=== PATIENT | female | born 1960 | race Caucasian/White ===

== ENCOUNTER 2017-03-22 21:41 | Outpatient (CLI) ==
[2013-05-01 19:58] VITALS: TEMP 98
[2016-04-18 20:23] VITALS: BMI 18.6
== END 2017-03-22 21:42 ==
LOC: AMBL 21:41
PROVIDERS: ATTEND Family Medicine
DX: R11.2 Nausea with vomiting, unspecified (principal)

== ENCOUNTER 2017-04-20 21:15 | Outpatient (CLI) ==
[2013-05-01 19:58] VITALS: TEMP 98
[2016-04-18 20:23] VITALS: BMI 18.6
== END 2017-04-20 21:16 | disposition home or self-care (01) ==
LOC: AMBL 21:15
PROVIDERS: ATTEND Emergency Medicine
DX: E87.6 Hypokalemia (principal); R19.7 Diarrhea, unspecified; R11.10 Vomiting, unspecified; R10.9 Unspecified abdominal pain; Z87.19 Personal history of other diseases of the digestive system

== ENCOUNTER 2017-04-24 19:44 | Outpatient (CLI) ==
[2013-05-01 19:58] VITALS: TEMP 98
[2016-04-18 20:23] VITALS: BMI 18.6
== END 2017-04-24 19:52 ==
LOC: AMBL 19:44
PROVIDERS: ATTEND Internal Medicine Geriatric Medicine
DX: R11.2 Nausea with vomiting, unspecified (principal); R19.7 Diarrhea, unspecified; E87.6 Hypokalemia

== ENCOUNTER 2017-04-26 22:20 | Outpatient (CLI) ==
[2013-05-01 19:58] VITALS: TEMP 98
[2016-04-18 20:23] VITALS: BMI 18.6
== END 2017-04-26 22:21 ==
LOC: AMBL 22:20
PROVIDERS: ATTEND Internal Medicine Geriatric Medicine
DX: M79.89 Other specified soft tissue disorders (principal); M79.605 Pain in left leg; M79.604 Pain in right leg

== ENCOUNTER 2017-06-19 21:27 | Outpatient (CLI) ==
[2013-05-01 19:58] VITALS: TEMP 98
[2016-04-18 20:23] VITALS: BMI 18.6
== END 2017-06-19 21:28 ==
LOC: AMBL 21:27
PROVIDERS: ATTEND Family Medicine
DX: R53.1 Weakness (principal); R19.7 Diarrhea, unspecified; R11.0 Nausea; R68.89 Other general symptoms and signs

== ENCOUNTER 2017-08-13 20:55 | Outpatient (CLI) ==
[2013-05-01 19:58] VITALS: TEMP 98
[2016-04-18 20:23] VITALS: BMI 18.6
== END 2017-08-13 20:56 ==
LOC: AMBL 20:55
PROVIDERS: ATTEND Family Medicine
DX: E87.6 Hypokalemia (principal); R10.9 Unspecified abdominal pain; R11.10 Vomiting, unspecified; R19.7 Diarrhea, unspecified

== ENCOUNTER 2017-08-26 21:56 | Outpatient (CLI) ==
[2013-05-01 19:58] VITALS: TEMP 98
[2016-04-18 20:23] VITALS: BMI 18.6
== END 2017-08-26 21:57 | disposition short-term general hospital (02) ==
LOC: AMBL 21:56
PROVIDERS: ATTEND Family Medicine
DX: R11.10 Vomiting, unspecified (principal); R19.7 Diarrhea, unspecified; E87.6 Hypokalemia

== ENCOUNTER 2017-10-03 09:40 | Outpatient (CLI) ==
[2016-04-18 20:23] VITALS: BMI 18.6
[2017-10-03] MEDS ORDERED: POTASSIUM CHLORIDE PREMIX RUN 40 MEQ in PREMIX 100 ML WATER 2 BAG IV STA (09:47)
[2017-10-03] MEDS ORDERED: ADDITIVE ONLY IV ONE ×2 (10:00→10:30)
[2017-10-03] MEDS ORDERED: POTASSIUM CHLORIDE IV ONE ×2 (10:00→10:30)
[2017-10-03] MEDS ORDERED: SODIUM CHLORIDE IV ONE ×2 (10:00→10:30)
[2017-10-03 10:33] VITALS: BP 102/74; TEMP 97.4
== END 2017-10-03 09:41 | disposition home or self-care (01) ==
LOC: OUTPT 09:40
PROVIDERS: ATTEND Family Medicine
DX: E87.6 Hypokalemia (principal); E86.1 Hypovolemia
CPT/HCPCS: 96365; 96366

== ENCOUNTER 2017-10-04 10:56 | Outpatient (CLI) ==
[2013-05-01 19:58] VITALS: TEMP 98
[2016-04-18 20:23] VITALS: BMI 18.6
[2017-10-04 11:39] LABS: ANION GAP 11.7; BUN/CREATININE RATIO 14.28; CALCIUM 8.3 mg/dL (8.2-10.2); CREATININE 0.63 mg/dL (0.60-1.30)
[2017-10-04 11:47] LABS: POTASSIUM 2.7 mmol/L (3.5-5.10)
== END 2017-10-04 10:57 | disposition home or self-care (01) ==
LOC: LAB 10:56
PROVIDERS: ATTEND Family Medicine
DX: K52.9 Noninfective gastroenteritis and colitis, unspecified (principal); E87.6 Hypokalemia
CPT/HCPCS: 36415; 80048

== ENCOUNTER 2017-10-05 08:12 | Outpatient (CLI) ==
[2016-04-18 20:23] VITALS: BMI 18.6
[2017-10-05 09:04] LABS: ANION GAP 9.3; BUN/CREATININE RATIO 11.86; CALCIUM 8.4 mg/dL (8.2-10.2); CREATININE 0.59 mg/dL (0.60-1.30)
[2017-10-05 09:10] LABS: POTASSIUM 2.3 mmol/L (3.5-5.10)
[2017-10-05 09:55] VITALS: BP 101/67; TEMP 97.9
[2017-10-05] MEDS ORDERED: SODIUM CHLORIDE IV ONE (10:30)
[2017-10-05] MEDS ORDERED: POTASSIUM CHLORIDE IV ONE (10:30)
[2017-10-05] MEDS ORDERED: ADDITIVE ONLY IV ONE (10:30)
[2017-10-05 15:24] LABS: ANION GAP 11.7; BUN/CREATININE RATIO 9.52; CALCIUM 8.3 mg/dL (8.2-10.2); CREATININE 0.63 mg/dL (0.60-1.30)
[2017-10-05 15:38] LABS: POTASSIUM 2.7 mmol/L (3.5-5.10)
== END 2017-10-05 08:13 | disposition home or self-care (01) ==
LOC: LAB 08:12
PROVIDERS: ATTEND Family Medicine
DX: E87.6 Hypokalemia (principal); E86.1 Hypovolemia; R11.10 Vomiting, unspecified; K52.9 Noninfective gastroenteritis and colitis, unspecified
CPT/HCPCS: 36415; 80048; 96365; 96366

== ENCOUNTER 2017-10-08 10:54 | Outpatient (CLI) ==
[2016-04-18 20:23] VITALS: BMI 18.6
[2017-10-08 11:36] LABS: BUN/CREATININE RATIO 15.62; CALCIUM 8.6 mg/dL (8.2-10.2); CREATININE 0.64 mg/dL (0.60-1.30)
[2017-10-08 12:02] VITALS: BP 94/64; TEMP 98.4
[2017-10-08] MEDS ORDERED: POTASSIUM CHLORIDE IV ONE (13:15)
[2017-10-08] MEDS ORDERED: ADDITIVE ONLY IV ONE (13:15)
[2017-10-08] MEDS ORDERED: SODIUM CHLORIDE IV ONE (13:15)
[2017-10-08 18:53] LABS: ANION GAP 9.6; BUN/CREATININE RATIO 12.5; CALCIUM 7.9 mg/dL (8.2-10.2); CREATININE 0.64 mg/dL (0.60-1.30); POTASSIUM 3.6 mmol/L (3.5-5.10)
== END 2017-10-08 10:55 | disposition home or self-care (01) ==
LOC: LAB 10:54
PROVIDERS: ATTEND Family Medicine
DX: E87.6 Hypokalemia (principal); E86.1 Hypovolemia
CPT/HCPCS: 36415; 80048; 96365; 96366

== ENCOUNTER 2017-10-10 08:47 | Outpatient (CLI) ==
[2013-05-01 19:58] VITALS: TEMP 98
[2016-04-18 20:23] VITALS: BMI 18.6
[2017-10-10] MEDS ORDERED: POTASSIUM CHLORIDE PREMIX RUN 20 MEQ in PREMIX 100 ML WATER 1 BAG IV STA (09:39)
[2017-10-10 09:41] LABS: ANION GAP 9.3; BUN/CREATININE RATIO 16.17; CALCIUM 8.7 mg/dL (8.2-10.2); CREATININE 0.68 mg/dL (0.60-1.30)
[2017-10-10 09:54] LABS: POTASSIUM 2.3 mmol/L (3.5-5.10)
[2017-10-10] MEDS ORDERED: SODIUM CHLORIDE IV ONE (10:30)
[2017-10-10] MEDS ORDERED: POTASSIUM CHLORIDE IV ONE (10:30)
[2017-10-10] MEDS ORDERED: ADDITIVE ONLY IV ONE (10:30)
== END 2017-10-10 08:48 | disposition home or self-care (01) ==
LOC: LAB 08:47 → OPMED 08:48
PROVIDERS: ATTEND Family Medicine
DX: E87.6 Hypokalemia (principal); E86.1 Hypovolemia; K52.9 Noninfective gastroenteritis and colitis, unspecified
CPT/HCPCS: 36415; 80048; 96365; 96366

== ENCOUNTER 2017-10-12 09:36 | Outpatient (CLI) ==
[2013-05-01 19:58] VITALS: TEMP 98
[2016-04-18 20:23] VITALS: BMI 18.6
[2017-10-12 10:54] LABS: ANION GAP 11.8; BUN/CREATININE RATIO 12.12; CALCIUM 8.5 mg/dL (8.2-10.2); CREATININE 0.66 mg/dL (0.60-1.30)
[2017-10-12 10:56] LABS: POTASSIUM 1.8 mmol/L (3.5-5.10)
[2017-10-12] MEDS: ADDITIVE ONLY IV SCH ×2 (11:33→16:00)
[2017-10-12] MEDS: POTASSIUM CHLORIDE IV SCH ×2 (11:33→16:00)
[2017-10-12] MEDS: SODIUM CHLORIDE IV SCH ×2 (11:33→16:00)
[2017-10-12] MEDS ORDERED: HEPARIN 500 UNIT/5 ML (PORT ACCESS TRAY ONLY) IVF ONE (14:45)
[2017-10-12] MEDS ORDERED: SALINE FLUSH (PORT ACCESS TRAY USE ONLY) IVF ONE (14:46)
== END 2017-10-12 09:37 | disposition home or self-care (01) ==
LOC: OPMED 09:36
PROVIDERS: ATTEND Family Medicine
DX: E87.6 Hypokalemia (principal); E86.1 Hypovolemia
CPT/HCPCS: 36415; 80048; 84132; 96365; 96366

== ENCOUNTER 2017-10-15 13:02 | Outpatient (CLI) ==
[2016-04-18 20:23] VITALS: BMI 18.6
[2017-10-15 14:01] LABS: ANION GAP 13.4; BUN/CREATININE RATIO 8.64; CALCIUM 8.5 mg/dL (8.2-10.2); CREATININE 0.81 mg/dL (0.60-1.30)
[2017-10-15 14:22] LABS: POTASSIUM 2.4 mmol/L (3.5-5.10)
[2017-10-15 14:52] VITALS: BP 120/70
[2017-10-15] MEDS ORDERED: SODIUM CHLORIDE IV ONE (14:52)
[2017-10-15] MEDS ORDERED: ADDITIVE ONLY IV ONE (14:52)
[2017-10-15] MEDS ORDERED: POTASSIUM CHLORIDE IV ONE (14:52)
[2017-10-15 20:48] LABS: ANION GAP 10.7; BUN/CREATININE RATIO 9.83; CALCIUM 7.8 mg/dL (8.2-10.2); CREATININE 0.61 mg/dL (0.60-1.30)
[2017-10-15 20:58] LABS: POTASSIUM 2.7 mmol/L (3.5-5.10)
== END 2017-10-15 20:42 | disposition home or self-care (01) ==
LOC: LAB 13:02
PROVIDERS: ATTEND Family Medicine
DX: E87.6 Hypokalemia (principal); E86.1 Hypovolemia
CPT/HCPCS: 36415; 80048

== ENCOUNTER 2017-10-17 08:26 | Outpatient (CLI) ==
[2016-04-18 20:23] VITALS: BMI 18.6
[2017-10-17 09:12] LABS: ANION GAP 10.7; BUN/CREATININE RATIO 11.11; CALCIUM 8.1 mg/dL (8.2-10.2); CREATININE 0.99 mg/dL (0.60-1.30)
[2017-10-17 09:19] LABS: POTASSIUM 2.7 mmol/L (3.5-5.10)
[2017-10-17 09:39] VITALS: BP 90/59; TEMP 98.3
[2017-10-17] MEDS ORDERED: SODIUM CHLORIDE IV ONE (10:00)
[2017-10-17] MEDS ORDERED: ADDITIVE ONLY IV ONE (10:00)
[2017-10-17] MEDS ORDERED: POTASSIUM CHLORIDE IV ONE (10:00)
[2017-10-17 14:06] LABS: ANION GAP 8.6; BUN/CREATININE RATIO 13.88; CALCIUM 7.6 mg/dL (8.2-10.2); CREATININE 0.72 mg/dL (0.60-1.30); POTASSIUM 3.6 mmol/L (3.5-5.10)
== END 2017-10-17 08:27 | disposition home or self-care (01) ==
LOC: LAB 08:26 → OPMED 08:27
PROVIDERS: ATTEND Family Medicine
DX: E87.6 Hypokalemia (principal); E86.1 Hypovolemia
CPT/HCPCS: 36415; 80048; 96365; 96366

== ENCOUNTER 2017-10-19 08:44 | Outpatient (CLI) ==
[2016-04-18 20:23] VITALS: BMI 18.6
[2017-10-19 10:13] LABS: ANION GAP 9.9; CREATININE 0.6 mg/dL (0.60-1.30); POTASSIUM 2.9 mmol/L (3.5-5.10)
[2017-10-19 10:57] VITALS: BP 96/65; TEMP 98
[2017-10-19] MEDS ORDERED: POTASSIUM CHLORIDE IV STA (10:59)
[2017-10-19] MEDS ORDERED: SODIUM CHLORIDE IV STA (10:59)
[2017-10-19] MEDS ORDERED: ADDITIVE ONLY IV STA (10:59)
[2017-10-19] MEDS: SODIUM CHLORIDE IV ONE (12:15)
[2017-10-19] MEDS: POTASSIUM CHLORIDE IV ONE (12:15)
[2017-10-19] MEDS: ADDITIVE ONLY IV ONE (12:15)
[2017-10-19 16:56] LABS: ANION GAP 10.3; BUN/CREATININE RATIO 13.43; CALCIUM 8.5 mg/dL (8.2-10.2); CREATININE 0.67 mg/dL (0.60-1.30); POTASSIUM 3.3 mmol/L (3.5-5.10)
== END 2017-10-19 08:45 | disposition home or self-care (01) ==
LOC: LAB 08:44
PROVIDERS: ATTEND Family Medicine
DX: E87.6 Hypokalemia (principal); E86.1 Hypovolemia
CPT/HCPCS: 36415; 80048; 96365; 96366

== ENCOUNTER 2017-10-22 08:12 | Outpatient (CLI) ==
[2013-05-01 19:58] VITALS: TEMP 98
[2016-04-18 20:23] VITALS: BMI 18.6
[2017-10-22 09:35] LABS: BUN/CREATININE RATIO 12.12; CALCIUM 8.4 mg/dL (8.2-10.2); CREATININE 0.66 mg/dL (0.60-1.30)
== END 2017-10-22 08:13 | disposition home or self-care (01) ==
LOC: LAB 08:12
PROVIDERS: ATTEND Family Medicine
DX: E87.6 Hypokalemia (principal); E86.1 Hypovolemia
CPT/HCPCS: 36415; 80048

== ENCOUNTER 2017-10-24 08:33 | Outpatient (CLI) ==
[2016-04-18 20:23] VITALS: BMI 18.6
[2017-10-24 09:35] LABS: ANION GAP 11.6; BUN/CREATININE RATIO 13.51; CALCIUM 9.2 mg/dL (8.2-10.2); CREATININE 0.74 mg/dL (0.60-1.30)
[2017-10-24 09:40] LABS: POTASSIUM 2.6 mmol/L (3.5-5.10)
[2017-10-24 10:02] VITALS: BP 92/63; TEMP 98.4
[2017-10-24] MEDS ORDERED: SODIUM CHLORIDE IV ONE (10:15)
[2017-10-24] MEDS ORDERED: ADDITIVE ONLY IV ONE (10:15)
[2017-10-24] MEDS ORDERED: POTASSIUM CHLORIDE IV ONE (10:15)
[2017-10-24 15:08] LABS: BUN/CREATININE RATIO 11.26; CALCIUM 8.4 mg/dL (8.2-10.2); CREATININE 0.71 mg/dL (0.60-1.30)
== END 2017-10-24 08:34 | disposition home or self-care (01) ==
LOC: LAB 08:33 → OPMED 08:34
PROVIDERS: ATTEND Family Medicine
DX: E87.6 Hypokalemia (principal); E86.1 Hypovolemia
CPT/HCPCS: 36415; 80048; 96365; 96366

== ENCOUNTER 2017-10-29 08:15 | Outpatient (CLI) ==
[2016-04-18 20:23] VITALS: BMI 18.6
[2017-10-29 08:49] LABS: ANION GAP 11.3; BUN/CREATININE RATIO 13.88; CALCIUM 8.6 mg/dL (8.2-10.2); CREATININE 0.72 mg/dL (0.60-1.30)
[2017-10-29 08:57] LABS: POTASSIUM 2.3 mmol/L (3.5-5.10)
[2017-10-29 09:10] VITALS: BP 128/75; TEMP 99.2
[2017-10-29] MEDS ORDERED: SODIUM CHLORIDE IV ONE (09:41)
[2017-10-29] MEDS ORDERED: POTASSIUM CHLORIDE IV ONE (09:41)
[2017-10-29] MEDS ORDERED: ADDITIVE ONLY IV ONE (09:41)
[2017-10-29] MEDS ORDERED: HEPARIN 500 UNIT/5 ML (PORT ACCESS TRAY ONLY) IVF ONE (13:43)
[2017-10-29 14:40] LABS: ANION GAP 12.1; BUN/CREATININE RATIO 14.28; CALCIUM 7.8 mg/dL (8.2-10.2); CREATININE 0.63 mg/dL (0.60-1.30); POTASSIUM 3.1 mmol/L (3.5-5.10)
[2017-10-29] MEDS ORDERED: SALINE FLUSH (PORT ACCESS TRAY USE ONLY) IVF ONE (14:44)
== END 2017-10-29 14:34 | disposition home health service (06) ==
LOC: LAB 08:15 → OPMED 14:34
PROVIDERS: ATTEND Family Medicine
DX: E87.6 Hypokalemia (principal); E86.1 Hypovolemia
CPT/HCPCS: 36415; 80048; 96365; 96366

== ENCOUNTER 2017-10-31 08:22 | Outpatient (CLI) ==
[2013-05-01 19:58] VITALS: TEMP 98
[2016-04-18 20:23] VITALS: BMI 18.6
[2017-10-31 09:00] LABS: ANION GAP 15.2; BUN/CREATININE RATIO 17.18; CALCIUM 8.5 mg/dL (8.2-10.2); CREATININE 0.64 mg/dL (0.60-1.30); POTASSIUM 3.2 mmol/L (3.5-5.10)
== END 2017-10-31 08:23 | disposition home or self-care (01) ==
LOC: LAB 08:22
PROVIDERS: ATTEND Family Medicine
DX: E87.6 Hypokalemia (principal); E86.1 Hypovolemia
CPT/HCPCS: 36415; 80048

== ENCOUNTER 2017-11-05 08:08 | Outpatient (CLI) ==
[2013-05-01 19:58] VITALS: TEMP 98
[2016-04-18 20:23] VITALS: BMI 18.6
[2017-11-05 09:07] LABS: BUN/CREATININE RATIO 13.84; CALCIUM 8.5 mg/dL (8.2-10.2); CREATININE 0.65 mg/dL (0.60-1.30)
== END 2017-11-05 08:09 | disposition home or self-care (01) ==
LOC: LAB 08:08
PROVIDERS: ATTEND Family Medicine
DX: E87.6 Hypokalemia (principal); E86.1 Hypovolemia
CPT/HCPCS: 36415; 80048

== ENCOUNTER 2017-11-18 20:30 | Outpatient (CLI) ==
[2013-05-01 19:58] VITALS: TEMP 98
[2016-04-18 20:23] VITALS: BMI 18.6
== END 2017-11-18 20:31 | disposition short-term general hospital (02) ==
LOC: AMBL 20:30
PROVIDERS: ATTEND Family Medicine
DX: R11.2 Nausea with vomiting, unspecified (principal); R19.7 Diarrhea, unspecified

== ENCOUNTER 2017-12-11 21:00 | Outpatient (CLI) ==
[2013-05-01 19:58] VITALS: TEMP 98
[2016-04-18 20:23] VITALS: BMI 18.6
== END 2017-12-11 21:01 | disposition short-term general hospital (02) ==
LOC: AMBL 21:00
PROVIDERS: ATTEND Internal Medicine Geriatric Medicine
DX: R11.10 Vomiting, unspecified (principal); R19.7 Diarrhea, unspecified; E87.6 Hypokalemia

== ENCOUNTER 2017-12-22 20:40 | Outpatient (CLI) ==
[2013-05-01 19:58] VITALS: TEMP 98
[2016-04-18 20:23] VITALS: BMI 18.6
== END 2017-12-22 20:41 | disposition short-term general hospital (02) ==
LOC: AMBL 20:40
PROVIDERS: ATTEND Emergency Medicine
DX: E87.6 Hypokalemia (principal)

== ENCOUNTER 2018-01-13 01:15 | Outpatient (CLI) ==
[2013-05-01 19:58] VITALS: TEMP 98
[2016-04-18 20:23] VITALS: BMI 18.6
== END 2018-01-13 01:16 | disposition short-term general hospital (02) ==
LOC: AMBL 01:15
PROVIDERS: ATTEND Internal Medicine Geriatric Medicine
DX: R11.2 Nausea with vomiting, unspecified (principal); R19.7 Diarrhea, unspecified; R52 Pain, unspecified; K51.90 Ulcerative colitis, unspecified, without complications

== ENCOUNTER 2018-04-14 19:41 | Outpatient (CLI) ==
[2013-05-01 19:58] VITALS: TEMP 98
[2016-04-18 20:23] VITALS: BMI 18.6
== END 2018-04-14 19:55 | disposition short-term general hospital (02) ==
LOC: AMBL 19:41
PROVIDERS: ATTEND Internal Medicine Geriatric Medicine
DX: R11.2 Nausea with vomiting, unspecified (principal); R19.7 Diarrhea, unspecified; M54.5 Low back pain; R51 Headache

== ENCOUNTER 2018-04-18 21:42 | Outpatient (CLI) ==
[2013-05-01 19:58] VITALS: TEMP 98
[2016-04-18 20:23] VITALS: BMI 18.6
== END 2018-04-18 21:56 | disposition short-term general hospital (02) ==
LOC: AMBL 21:42
PROVIDERS: ATTEND Family Medicine
DX: R11.2 Nausea with vomiting, unspecified (principal); R19.7 Diarrhea, unspecified; K50.90 Crohn's disease, unspecified, without complications

== ENCOUNTER 2018-04-21 15:16 | Outpatient (CLI) ==
[2013-05-01 19:58] VITALS: TEMP 98
[2016-04-18 20:23] VITALS: BMI 18.6
== END 2018-04-21 15:29 | disposition short-term general hospital (02) ==
LOC: AMBL 15:16
PROVIDERS: ATTEND Emergency Medicine
DX: M54.9 Dorsalgia, unspecified (principal); X50.1XXA Overexertion from prolonged static or awkward postures, initial encounter

== ENCOUNTER 2018-05-13 19:57 | Outpatient (CLI) ==
[2013-05-01 19:58] VITALS: TEMP 98
[2016-04-18 20:23] VITALS: BMI 18.6
== END 2018-05-13 20:10 | disposition short-term general hospital (02) ==
LOC: AMBL 19:57
PROVIDERS: ATTEND Internal Medicine Geriatric Medicine
DX: R11.2 Nausea with vomiting, unspecified (principal); R19.7 Diarrhea, unspecified; R53.1 Weakness; M54.2 Cervicalgia; W19.XXXA Unspecified fall, initial encounter

== ENCOUNTER 2019-03-05 14:25 | Emergency (ER) ==
[2019-03-05 14:28] VITALS: BMI 20.7
--- NOTE | 2019-03-05 15:51 | DI ---
EXAM: CHEST FRONTAL AND LATERAL VIEWS HISTORY: Heart prominence, panic attacks. COMPARISON: 02/13/2018 FINDINGS: Heart size appears to remain within normal limits. Moderate atherosclerotic disease. Rig ht port catheter stable ending over the upper right atrium. There is diffuse interstitial accentuati on greater in the central lung zones which is new since the previous study. There is probable trace pleural effusions. No lobar consolidation or pneumothorax. IMPRESSION: 1. Interstitial accentuation which is new since previous exam suggesting either interstitial pneumon itis or pulmonary edema. Correlate clinically.
--- NOTE | 2019-03-05 16:13 | CT ---
EXAM: CT abdomen pelvis without contrast HISTORY: History of Crohn disease, abdominal pain COMPARISON: 02/18/2018 TECHNIQUE: CT abdomen pelvis performed without intravenous contrast. Coronal and sagittal reformatt ed images obtained. FINDINGS: Interlobular septal thickening at the lung bases with possible wall thickening. There are multiple small nodules at the lung bases appear new from prior examination. No free air. No acute abnormalities of the bones. Minimal chronic loss of height L4. Multilevel Schmorl's node formation . Associated minimal chronic loss of height. Minimal chronic loss of height L4. Heart top normal i n size. Right chest port terminates in the right atrium, unchanged. Innumerable liver cysts and ad ditional sub centimeter hypodensities in the liver that are too small to characterize. Liver is enla rged. Patient status post cholecystectomy. Prominence of the common bile duct, may be postsurgical. Pancreas unremarkable. Spleen unremarkable. Adrenals unremarkable. No hydronephrosis or nephroli thiasis. Increased density in the bladder. Aorta normal in caliber. Moderate atherosclerosis. Sto mach unremarkable. No dilated loops small bowel. Appendix not visualized. Moderate fecal retention in the colon. No inflammatory stranding identified in the abdomen pelvis. No lymphadenopathy or as cites identified. IMPRESSION: 1. Findings suggesting pulmonary interstitial edema at the lung bases. There could be a component o f interstitial pneumonitis. Additionally, there are multiple small pulmonary nodules appear new from prior examination. Correlation with CT chest. 2. No acute inflammatory process identified in the abdomen or pelvis. 3. Hepatomegaly. Innumerable hepatic cysts and additional sub centimeter hypodensities too small to characterize. 4. Status post cholecystectomy. Prominence of the common bile duct may be postsurgical. Recommend correlation with liver function tests and additional evaluation as indicated. 5. Increased attenuation in the bladder to recent contrast administration. Recommend correlation fo r any evidence for hematuria 6. Moderate fecal retention in the colon. 7. Atherosclerosis. 8. Right chest port terminating in the region of the right atrium, unchanged.
--- NOTE | 2019-03-05 16:35 | ED.PDOC ---
General ED Provider: Dr. MYLENE MCKINNON Chief Complaint: Psychiatric Complaint Stated Complaint: Panic attacks. 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 Also Stressed over not having her meds due to being inbetween providers. Has apt with Dr Malin next week. State out of Xarelto but later found out Prescription given by [facility] but did not get filled as suspected as her brother did not take it to pharmacy[facility] Flare of crohns. HX blood clot on heart(pulm embolus). States dx in October 2018. Was seen in ER a [facility] last week for abdominal pain Time Seen by Physician: 14:45 Mode of Arrival: Walk-In Information Source: Patient Exam Limitations: No limitations Primary Care Provider: DONAL MALIN Nursing and Triage Documentation Reviewed and Agree: Yes Does patient meet sepsis criteria?: No System Inflammatory Response Syndrome: Not Applicable Sepsis Protocol: For patient's 13 years and over: Temp is 96.8 and below OR 101 and greater Pulse >90 BPM Resp >20/minute Acutely Altered Mental Status Are patient's symptoms suggestive of a new infection, such as: -Pneumonia -Skin, Soft Tissue -Endocarditis -UTI -Bone, Joint Infection -Implantable Device -Acute Abdominal Infection -Wound Infection -Meningitis -Blood Stream Catheter Infection -Unknown Psychological Complaint Exam - Psychiatric Complaint/Exam Patient Complains Of: Present: Other (anxiety-=out of xanax for several weeks) Symptoms Are: Still present Timing: Intermittent Episodes Lasting: Days Initial Severity: Moderate Current Severity: Moderate Character: Present: Fearful, Anxious, Frustrated Aggravating: Reports: Recent stress, Medication noncompliance Associated Signs And Symptoms: Reports: Sleep disturbance. Denies: Hostile, Confused, Hallucinating, Paranoid behavior, Appetite change Related History: Denies: Suicidal thoughts, Suicidal plan, Suicidal gestures, Homicidal thoughts, Homicidal plan, Homicidal gestures Completed Suicide Risk Factors: None Patient In Custody Of Police: No Social Withdrawal Present: No Social Isolation Present: No Prior Suicide Attempt: No Injury From Prior Suicide Attempt: No Related Surgical History: Reports: None Patient Uncooperative For Exam: No Mood: Present: Anxious Appearance: Present: Clean Thought Process: Present: Logical Insight: Present: Poor Memory: Intact Judgement: Impaired Danger To Others: No Differential Diagnoses: Anxiety Review of Systems - Review Of Systems Constitutional: Reports: No symptoms Eyes: Reports: No symptoms Ears, Nose, Mouth, Throat: Reports: No symptoms Respiratory: Reports: No symptoms Cardiac: Reports: No symptoms GI: Reports: Abdominal pain : Reports: No symptoms Musculoskeletal: Reports: No symptoms Skin: Reports: No symptoms Neurological: Reports: No symptoms Endocrine: Reports: No symptoms Hematologic/Lymphatic: Reports: No symptoms All Other Systems: Reviewed and Negative Past Medical History - Past Medical History Previously Healthy: No Endocrine: Reports: None Cardiovascular: Reports: None Respiratory: Reports: Asthma Hematological: Reports: Anemia Gastrointestinal: Reports: GERD, Crohn's, Other (Ulcerative colitis. ) Genitourinary: Reports: Other (hypokalemia) Neuro/Psych: Reports: Migraine Musculoskeletal: Reports: Arthritis Cancer: Reports: None Last Menstrual Period: n/a - Surgical History General Surgical History: Reports: Hysterectomy, Cholecystectomy - Family History Family History: Reports: Unknown - Social History Smoking Status: Current some day smoker, Light tobacco smoker Hx Substance Use: No Alcohol Screening: None Physical Exam - Physical Exam Appearance: Ill-appearing, Thin Ill-appearing: Mild Pain Distress: Mild Eyes: ADONIS, EOMI, Conjunctiva clear ENT: Ears normal, Nose normal, Oropharynx normal Neck: Supple Respiratory: Airway patent, Breath sounds clear, Breath sounds equal, Respirations nonlabored Cardiovascular: RRR, Pulses normal, No rub, No murmur GI/: Soft, No masses, Bowel sounds normal, No Organomegaly, Tender Musculoskeletal: Normal strength Skin: Warm, Dry, Normal color Neurological: Sensation intact, Motor intact, Reflexes intact, Cranial nerves intact, Alert, Oriented Psychiatric: Affect appropriate, Mood appropriate Interpretation - Radiology Interpretation Radiology Interpretation By: Radiologist Exam Interpreted: CT Scan (Abdomen-See Report/ ) Re-Evaluation - Re-Evaluation Time of Re-Evaluation: 17:45 Status: Improved Vital Signs Stable: Yes Appearance: NAD Lungs: Clear Skin: Warm and Dry Neuro: Alert and Oriented X3 CV: RRR Critical Care Note - Critical Care Note Total Time (mins): 60 Course - Course Hematology/Chemistry: 03/05/19 15:14 03/05/19 15:14 Orders, Labs, Meds: Lab Review 03/05/19 03/05/19 03/05/19 15:14 15:14 15:14 WBC 6.25 RBC 3.80 L Hgb 10.5 L Hct 32.9 L MCV 86.6 MCH 27.6 MCHC 31.9 RDW Coeff of Elizabeth 15.6 H Plt Count 318 Immature Gran % (Auto) 0.6 Neut % (Auto) 65.1 Lymph % (Auto) 24.0 [place] % (Auto) 8.2 Eos % (Auto) 1.8 Baso % (Auto) 0.3 Immature Gran # (Auto) 0.0 Neut # (Auto) 4.1 Lymph # (Auto) 1.5 [place] # (Auto) 0.5 Eos # (Auto) 0.1 Baso # (Auto) 0.0 ESR 18 D-Dimer (Manual) 2632.67 Sodium 137.2 Potassium 3.08 L Chloride 108.2 H Carbon Dioxide 22.0 Anion Gap 10.08 BUN 16.6 Creatinine 0.80 Estimated GFR (MDRD) 74.00 BUN/Creatinine Ratio 20.75 Glucose 99.5 Calcium 8.11 L Total Bilirubin 0.36 AST 96.5 H ALT 84.9 H Alkaline Phosphatase 389.7 H Total Creatine Kinase 26.1 L Troponin I < 0.012 Total Protein 6.29 L Albumin 3.36 L Globulin 2.93 Albumin/Globulin Ratio 1.14 Urine Color Urine Clarity Urine pH Ur Specific Mcintosh Urine Protein Urine Glucose (UA) Urine Ketones Urine Blood Urine Nitrite Urine Bilirubin Urine Urobilinogen Ur Leukocyte Esterase Ur Squamous Epith Cells Urine Mucus 03/05/19 15:46 WBC RBC Hgb Hct MCV MCH MCHC RDW Coeff of Elizabeth Plt Count Immature Gran % (Auto) Neut % (Auto) Lymph % (Auto) [place] % (Auto) Eos % (Auto) Baso % (Auto) Immature Gran # (Auto) Neut # (Auto) Lymph # (Auto) [place] # (Auto) Eos # (Auto) Baso # (Auto) ESR D-Dimer (Manual) Sodium Potassium Chloride Carbon Dioxide Anion Gap BUN Creatinine Estimated GFR (MDRD) BUN/Creatinine Ratio Glucose Calcium Total Bilirubin AST ALT Alkaline Phosphatase Total Creatine Kinase Troponin I Total Protein Albumin Globulin Albumin/Globulin Ratio Urine Color Yellow Urine Clarity Clear Urine pH 5.5 Ur Specific Mcintosh 1.025 Urine Protein 2+ Urine Glucose (UA) Negative Urine Ketones Negative Urine Blood Negative Urine Nitrite Negative Urine Bilirubin Negative Urine Urobilinogen 0.2 Ur Leukocyte Esterase Negative Ur Squamous Epith Cells Not present Urine Mucus 3+ Orders Category Date Time Status EKG-(ED ONLY) Stat CARDIO 03/05/19 14:58 Completed CBC W/ AUTO DIFF Stat LAB 03/05/19 15:14 Completed CMP [COMPREHENSIVE METABOLIC PANEL] Stat LAB 03/05/19 15:14 Completed CREATINE KINASE Stat LAB 03/05/19 15:14 Completed D-DIMER Stat LAB 03/05/19 15:14 Completed ESR Stat LAB 03/05/19 15:14 Completed TROPONIN I Stat LAB 03/05/19 15:14 Completed UA [URINALYSIS C & S IF INDICATED] Stat LAB 03/05/19 15:46 Completed Potassium Chloride [K-Dur] MEDS 03/05/19 18:14 Discontinued 20 meq PO ONCE STA CHEST, 2 VIEWS PA & LAT Stat RADS 03/05/19 14:[address] ABDOMEN/PELVIS WO CONTRAST Stat RADS 03/05/19 15:24 Completed Medications Discontinued Medications Generic Name Dose Route Start Last Admin Trade Name Freq PRN Reason Stop Dose Admin Potassium Chloride 20 meq 03/05/19 18:14 03/05/19 18:19 K-Dur PO 03/05/19 18:15 20 meq ONCE STA Administration Vital Signs: Temp Pulse Resp BP Pulse Ox 03/05/19 18:42 97.8 F 74 18 100/74 100 03/05/19 14:26 98.4 F 100 H 20 108/65 89 L Departure - Departure Time of Disposition: 18:15 Disposition: HOME SELF-CARE Discharge Problem: Generalized abdominal cramping, Crohns disease, Chronic pulmonary embolism, Anxiety, Panic attack as reaction to stress Instructions: Pulmonary Embolism (ED), Crohn Disease (ED), Stress (ED), Panic Disorder (ED) Condition: Fair Pt referred to PMD for follow-up: Yes (Dr Malin) IPMP verified?: No Additional Instructions: Remain on all meds Keep apt with Dr Malin Prescriptions: Hydrocodone/Acetaminophen [[place] 5-325 Tablet] 1 each PO Q6HR #10 tablet Clonazepam [Klonopin] 0.5 mg PO BID PRN #20 tablet PRN Reason: Anxiety Dicyclomine HCl 10 mg PO TID PRN #30 capsule PRN Reason: abdominal Cramping Potassium Chloride 20 meq PO 2-3XD #30 tab.er.prt Promethazine HCl [Phenergan Tab] 25 mg PO Q8H PRN #15 tablet PRN Reason: Nausea / Vomiting Rivaroxaban [Xarelto] 15 mg PO BID 21 Days #42 tablet Allergies/Adverse Reactions: Allergies ketorolac tromethamine [From Toradol] Adverse Reaction (Verified 03/05/19 14:28) ITCHY latex Adverse Reaction (Verified 03/05/19 14:28) REDNESS/BLISTERING ONLY IF LEFT ON SKIN FOR PERIODS OF TIME Latex, Natural Rubber Adverse Reaction (Verified 03/05/19 14:28) levofloxacin [From Levaquin] Adverse Reaction (Verified 03/05/19 14:28) HIVES/ITCHING ondansetron HCl [From Zofran] Adverse Reaction (Verified 03/05/19 14:28) MIGRAINE Penicillins Adverse Reaction (Verified 03/05/19 14:28) HIVES/ITCHING Home Medications: Ambulatory Orders Clonazepam [Klonopin] 0.5 mg PO BID PRN #20 tablet 03/05/19 Dicyclomine HCl 10 mg PO TID PRN #30 capsule 03/05/19 Hydrocodone/Acetaminophen [[place] 5-325 Tablet] 1 each PO Q6HR #10 tablet Potassium Chloride 20 meq PO 2-3XD #30 tab.er.prt 03/05/19 Promethazine HCl [Phenergan Tab] 25 mg PO Q8H PRN #15 tablet 03/05/19 Rivaroxaban [Xarelto] 15 mg PO BID 21 Days #42 tablet 03/05/19 Disposition Discussed With: Patient
[2019-03-05] MEDS ORDERED: K-DUR PO STA (18:14)
[2019-03-05 18:43] VITALS: BP 100/74; TEMP 97.8
--- NOTE | 2019-03-13 14:46 | ER ---
ADDENDUM: It was discovered during the course of the workup that the patient had actually been at [facility] ER last weekend and then admitted for 23 hour observation. Records were obtained from [facility] and reviewed. It appeared that she signed out AMA. Prescriptions were given but she apparently did not have them filled. She stated that her brother was supposed to go to [facility] pharmacy in [place] and have them filled. She states that she signed out from [facility] because she was not happy with the care that she was receiving there. Please refer to the records from [facility] that are attached to this chart. The patient evidentially called [facility] pharmacy and discovered that she did not have any prescriptions waiting on her. She states that appears that her brother did not take them there as he stated he would. In attempt to assist the patient I went through rectified which medications she needed and gave her new prescriptions to get her through next week when she is seeing Dr. Malin for the first time. Instructed her to be compliant with her medications and once she gets started on the Xarelto not to discontinue it until she is advised to do so by her PCP. If there should be further problem until followup visit to return to the ER. MIKE
== END 2019-03-05 18:45 | disposition home or self-care (01) ==
LOC: ED 14:25
DX: F43.0 Acute stress reaction (principal); K50.90 Crohn's disease, unspecified, without complications; I27.82 Chronic pulmonary embolism; R10.84 Generalized abdominal pain; Z79.899 Other long term (current) drug therapy
CPT/HCPCS: 36415; 80053; 81001; 82550; 84484; 85025; 85379; 85651; 93005; 93010; 99283

== ENCOUNTER 2019-04-11 08:32 | Outpatient (CLI) ==
[2019-04-11 09:33] VITALS: TEMP 98.2
[2019-04-11] MEDS ORDERED: MERREM IV STA (09:35)
[2019-04-11] MEDS ORDERED: SODIUM CHLORIDE IV STA (09:35)
[2019-04-11] MEDS ORDERED: GENTAMICIN SULFATE IV ONE (10:00)
[2019-04-11] MEDS ORDERED: SODIUM CHLORIDE IV ONE (10:00)
[2019-04-11] MEDS: [UNRECOGNIZED DRUG - OTHER] IV STA ×2 (10:00→10:33)
[2019-04-11] MEDS: MERREM IV STA ×2 (10:00→10:33)
[2019-04-11] MEDS ORDERED: [UNRECOGNIZED DRUG - OTHER] IV ONE (20:40)
[2019-04-11] MEDS ORDERED: MERREM IV ONE (20:40)
[2019-04-11] MEDS ORDERED: [UNRECOGNIZED DRUG - OTHER] IV SCH (21:00)
[2019-04-11] MEDS ORDERED: MERREM IV SCH (21:00)
[2019-04-11 22:42] VITALS: BP 98/61
== END 2019-04-11 08:33 | disposition home or self-care (01) ==
LOC: OPMED 08:32
PROVIDERS: ATTEND Nurse Practitioner Family
DX: I38 Endocarditis, valve unspecified (principal); Z98.890 Other specified postprocedural states; T80.219S Unspecified infection due to central venous catheter, sequela
CPT/HCPCS: 96365; 96366; 96375

== ENCOUNTER 2019-04-12 07:40 | Outpatient (CLI) ==
[2019-04-12] MEDS ORDERED: SODIUM CHLORIDE IV STA (07:49)
[2019-04-12] MEDS ORDERED: MERREM IV STA ×2 (07:49→08:01)
[2019-04-12] MEDS ORDERED: MERREM 1 GM in SODIUM CHLORIDE 100 ML IV STA (07:55)
[2019-04-12] MEDS ORDERED: [UNRECOGNIZED DRUG - OTHER] IV STA (08:01)
[2019-04-12] MEDS ORDERED: MERREM 1 GM in SODIUM CHLORIDE 100 ML IV ONE (08:20)
[2019-04-12] MEDS ORDERED: [UNRECOGNIZED DRUG - OTHER] IV ONE (08:30)
[2019-04-12] MEDS ORDERED: MERREM IV ONE (08:30)
[2019-04-12] MEDS ORDERED: GENTAMICIN SULFATE IV ONE (09:00)
[2019-04-12] MEDS ORDERED: SODIUM CHLORIDE IV ONE (09:00)
[2019-04-12] MEDS ORDERED: [UNRECOGNIZED DRUG - OTHER] IV SCH (19:35)
[2019-04-12] MEDS ORDERED: MERREM IV SCH ×2 (19:35→21:00)
[2019-04-12 20:06] VITALS: BP 104/62; TEMP 98.1
[2019-04-12] MEDS ORDERED: [UNRECOGNIZED DRUG - OTHER] IV SCH (21:00)
== END 2019-04-12 07:41 | disposition home or self-care (01) ==
LOC: OPMED 07:40
PROVIDERS: ATTEND Nurse Practitioner Family
DX: I38 Endocarditis, valve unspecified (principal); Z98.890 Other specified postprocedural states; T80.219S Unspecified infection due to central venous catheter, sequela
CPT/HCPCS: 96365; 96366

== ENCOUNTER 2019-04-13 08:00 | Outpatient (CLI) ==
[2019-04-13] MEDS ORDERED: [UNRECOGNIZED DRUG - OTHER] IV ONE ×2 (08:20→08:50)
[2019-04-13] MEDS ORDERED: MERREM IV ONE ×2 (08:20→08:50)
[2019-04-13] MEDS ORDERED: GENTAMICIN SULFATE IV ONE (09:30)
[2019-04-13] MEDS ORDERED: SODIUM CHLORIDE IV ONE (09:30)
[2019-04-13] MEDS ORDERED: MERREM IV SCH (20:00)
[2019-04-13] MEDS ORDERED: [UNRECOGNIZED DRUG - OTHER] IV SCH (20:00)
[2019-04-13 20:03] VITALS: BP 92/59; TEMP 98
== END 2019-04-13 08:01 | disposition home or self-care (01) ==
LOC: OPMED 08:00
PROVIDERS: ATTEND Nurse Practitioner Family
DX: I38 Endocarditis, valve unspecified (principal); Z98.890 Other specified postprocedural states; T80.219S Unspecified infection due to central venous catheter, sequela
CPT/HCPCS: 96365; 96367

== ENCOUNTER 2019-04-14 07:48 | Outpatient (CLI) ==
[2019-04-14] MEDS: [UNRECOGNIZED DRUG - OTHER] IV ONE ×2 (08:00→08:27)
[2019-04-14] MEDS: MERREM IV ONE ×2 (08:00→08:27)
[2019-04-14] MEDS ORDERED: [UNRECOGNIZED DRUG - OTHER] IV ONE ×3 (08:25→09:30)
[2019-04-14] MEDS ORDERED: MERREM IV ONE ×4 (08:25→19:54)
[2019-04-14] MEDS ORDERED: SODIUM CHLORIDE IV ONE (08:42)
[2019-04-14] MEDS ORDERED: GENTAMICIN SULFATE IV ONE (08:42)
[2019-04-14 20:01] VITALS: BP 114/69; TEMP 98.2
== END 2019-04-14 07:49 | disposition home or self-care (01) ==
LOC: OPMED 07:48
PROVIDERS: ATTEND Nurse Practitioner Family
DX: I38 Endocarditis, valve unspecified (principal); Z98.890 Other specified postprocedural states; T80.219S Unspecified infection due to central venous catheter, sequela
CPT/HCPCS: 96365; 96366; 96367

== ENCOUNTER 2019-04-15 07:55 | Outpatient (CLI) ==
[2019-04-15] MEDS ORDERED: [UNRECOGNIZED DRUG - OTHER] IV SCH (09:00)
[2019-04-15] MEDS ORDERED: [UNRECOGNIZED DRUG - OTHER] IV ONE ×2 (09:00→09:30)
[2019-04-15] MEDS ORDERED: SODIUM CHLORIDE IV SCH (09:00)
[2019-04-15] MEDS ORDERED: GENTAMICIN SULFATE IV SCH (09:00)
[2019-04-15] MEDS ORDERED: MERREM IV SCH (09:00)
[2019-04-15] MEDS ORDERED: MERREM IV ONE ×3 (09:00→19:40)
[2019-04-15] MEDS ORDERED: GENTAMICIN SULFATE IV ONE (09:30)
[2019-04-15] MEDS ORDERED: SODIUM CHLORIDE IV ONE (09:30)
[2019-04-15] MEDS ORDERED: [UNRECOGNIZED DRUG - OTHER] IV ONE (19:40)
[2019-04-15 21:02] VITALS: BP 111/65; TEMP 98.1
== END 2019-04-15 07:56 | disposition home or self-care (01) ==
LOC: OPMED 07:55
PROVIDERS: ATTEND Nurse Practitioner Family
DX: I38 Endocarditis, valve unspecified (principal); Z98.890 Other specified postprocedural states; T80.219S Unspecified infection due to central venous catheter, sequela
CPT/HCPCS: 36415; 80053; 80170; 85025; 96365; 96366

== ENCOUNTER 2019-04-19 08:02 | Outpatient (CLI) ==
[2019-04-19] MEDS ORDERED: SODIUM CHLORIDE IV ONE (08:30)
[2019-04-19] MEDS ORDERED: GENTAMICIN SULFATE IV ONE (08:30)
[2019-04-19] MEDS ORDERED: [UNRECOGNIZED DRUG - OTHER] IV ONE ×4 (09:00)
[2019-04-19] MEDS ORDERED: MERREM IV ONE ×4 (09:00)
[2019-04-19] MEDS ORDERED: MERREM IV SCH ×2 (09:00→20:00)
[2019-04-19] MEDS ORDERED: [UNRECOGNIZED DRUG - OTHER] IV SCH (09:00)
[2019-04-19] MEDS: [UNRECOGNIZED DRUG - OTHER] IV SCH ×2 (19:39→20:06)
[2019-04-19] MEDS: MERREM IV SCH ×2 (19:39→20:06)
[2019-04-19 19:48] VITALS: TEMP 97.7
[2019-04-19] MEDS ORDERED: [UNRECOGNIZED DRUG - OTHER] IV SCH (20:00)
[2019-04-19 21:01] VITALS: BP 125/86
== END 2019-04-19 08:03 | disposition home or self-care (01) ==
LOC: OPMED 08:02
PROVIDERS: ATTEND Nurse Practitioner Family
DX: I38 Endocarditis, valve unspecified (principal); Z98.890 Other specified postprocedural states; T80.219S Unspecified infection due to central venous catheter, sequela
CPT/HCPCS: 96365; 96366

== ENCOUNTER 2019-04-20 07:54 | Outpatient (CLI) ==
[2019-04-20] MEDS: [UNRECOGNIZED DRUG - OTHER] IV ONE ×4 (08:08→20:24)
[2019-04-20] MEDS: MERREM IV ONE ×4 (08:08→20:24)
[2019-04-20] MEDS ORDERED: [UNRECOGNIZED DRUG - OTHER] IV ONE ×2 (08:28→20:30)
[2019-04-20] MEDS ORDERED: MERREM IV ONE ×2 (08:28→20:30)
[2019-04-20] MEDS ORDERED: SODIUM CHLORIDE IV ONE (08:30)
[2019-04-20] MEDS ORDERED: GENTAMICIN SULFATE IV ONE (08:30)
[2019-04-20 20:03] VITALS: BP 140/90; TEMP 97.7
== END 2019-04-20 07:55 | disposition home or self-care (01) ==
LOC: OPMED 07:54
PROVIDERS: ATTEND Nurse Practitioner Family
DX: I38 Endocarditis, valve unspecified (principal); Z98.890 Other specified postprocedural states; T80.219S Unspecified infection due to central venous catheter, sequela
CPT/HCPCS: 96365; 96366

== ENCOUNTER 2019-04-21 07:48 | Outpatient (CLI) ==
[2019-04-21] MEDS ORDERED: SODIUM CHLORIDE IV ONE (08:30)
[2019-04-21] MEDS ORDERED: GENTAMICIN SULFATE IV ONE (08:30)
[2019-04-21] MEDS ORDERED: MERREM IV ONE ×3 (09:00→19:46)
[2019-04-21] MEDS ORDERED: [UNRECOGNIZED DRUG - OTHER] IV ONE ×2 (09:00→09:30)
[2019-04-21] MEDS ORDERED: [UNRECOGNIZED DRUG - OTHER] IV SCH (09:00)
[2019-04-21] MEDS ORDERED: MERREM IV SCH ×2 (09:00→19:30)
[2019-04-21] MEDS ORDERED: SALINE FLUSH (PORT ACCESS TRAY USE ONLY) IVF ONE (09:21)
[2019-04-21] MEDS ORDERED: [UNRECOGNIZED DRUG - OTHER] IV SCH (19:30)
[2019-04-21 19:36] VITALS: BP 168/90; TEMP 97.9
[2019-04-21] MEDS: [UNRECOGNIZED DRUG - OTHER] IV SCH ×2 (19:49→20:41)
[2019-04-21] MEDS: MERREM IV SCH ×2 (19:49→20:41)
== END 2019-04-21 07:49 | disposition home or self-care (01) ==
LOC: OPMED 07:48
PROVIDERS: ATTEND Nurse Practitioner Family
DX: I38 Endocarditis, valve unspecified (principal); Z98.890 Other specified postprocedural states; T80.219S Unspecified infection due to central venous catheter, sequela
CPT/HCPCS: 36415; 80053; 80170; 85025; 96365; 96366

== ENCOUNTER 2019-04-22 07:57 | Outpatient (CLI) ==
[2019-04-22 08:12] VITALS: BP 126/73; TEMP 98.6
[2019-04-22] MEDS ORDERED: SODIUM CHLORIDE IV ONE (08:30)
[2019-04-22] MEDS ORDERED: GENTAMICIN SULFATE IV ONE (08:30)
[2019-04-22] MEDS ORDERED: MERREM IV ONE ×2 (09:00→09:30)
[2019-04-22] MEDS ORDERED: [UNRECOGNIZED DRUG - OTHER] IV ONE ×2 (09:00→09:30)
== END 2019-04-22 07:58 | disposition home or self-care (01) ==
LOC: OPMED 07:57
PROVIDERS: ATTEND Nurse Practitioner Family
DX: I38 Endocarditis, valve unspecified (principal); Z98.890 Other specified postprocedural states; T80.219S Unspecified infection due to central venous catheter, sequela
CPT/HCPCS: 96365; 96366

== ENCOUNTER 2019-04-23 07:53 | Outpatient (CLI) ==
[2019-04-23 08:08] VITALS: BP 164/98; TEMP 97.3
[2019-04-23] MEDS ORDERED: SODIUM CHLORIDE IV ONE (08:30)
[2019-04-23] MEDS ORDERED: GENTAMICIN SULFATE IV ONE (08:30)
[2019-04-23] MEDS ORDERED: [UNRECOGNIZED DRUG - OTHER] IV ONE ×2 (09:05→09:35)
[2019-04-23] MEDS ORDERED: MERREM IV ONE ×2 (09:05→09:35)
== END 2019-04-23 07:54 | disposition home or self-care (01) ==
LOC: OPMED 07:53
PROVIDERS: ATTEND Nurse Practitioner Family
DX: I38 Endocarditis, valve unspecified (principal); Z98.890 Other specified postprocedural states; T80.219S Unspecified infection due to central venous catheter, sequela
CPT/HCPCS: 96365; 96366

== ENCOUNTER 2019-04-25 08:08 | Outpatient (CLI) ==
[2019-04-25 08:47] VITALS: BP 117/69; TEMP 97.9
[2019-04-25] MEDS ORDERED: GENTAMICIN SULFATE IV ONE (09:00)
[2019-04-25] MEDS ORDERED: [UNRECOGNIZED DRUG - OTHER] IV SCH (09:00)
[2019-04-25] MEDS ORDERED: MERREM IV SCH (09:00)
[2019-04-25] MEDS ORDERED: MERREM IV ONE ×3 (09:00→10:30)
[2019-04-25] MEDS ORDERED: SODIUM CHLORIDE IV ONE (09:00)
[2019-04-25] MEDS ORDERED: [UNRECOGNIZED DRUG - OTHER] IV ONE (09:00)
[2019-04-25] MEDS ORDERED: [UNRECOGNIZED DRUG - OTHER] IV ONE ×2 (10:00→10:30)
== END 2019-04-25 08:09 | disposition home or self-care (01) ==
LOC: OPMED 08:08
PROVIDERS: ATTEND Nurse Practitioner Family
DX: I38 Endocarditis, valve unspecified (principal); Z98.890 Other specified postprocedural states; T80.219S Unspecified infection due to central venous catheter, sequela
CPT/HCPCS: 96365; 96366; 96367

== ENCOUNTER 2019-05-06 15:05 | Outpatient (CLI) ==
[2013-05-01 19:58] VITALS: TEMP 98
--- NOTE | 2019-05-06 16:21 | DI ---
EXAM: Two views of the chest. History: Tricuspid valve repair. Comparison: Chest radiograph 03/08/2019 Findings: Heart size is normal. Artificial heart valve is seen in place. Atherosclerotic vascular calcifications. Bilateral interstitial thickening. No appreciable pleural fluid and no pneumothorax . No acute osseous abnormalities. Impression: 1. Diffuse bilateral interstitial thickening could represent edema or interstitial pneumonitis. 2. Artificial heart valve. 3. Atherosclerotic vascular disease
== END 2019-05-06 15:06 | disposition home or self-care (01) ==
LOC: RAD 15:05
PROVIDERS: ATTEND Physician Assistant
DX: Z98.890 Other specified postprocedural states (principal)

== ENCOUNTER 2019-07-01 20:52 | Emergency (ER) ==
[2019-07-01 20:59] VITALS: BP 129/83; TEMP 98.7; BMI 18.9
[2019-07-01] MEDS ORDERED: DILAUDID 1 MG/ML SYRINGE IM STA (21:05)
[2019-07-01] MEDS ORDERED: PHENERGAN 25 MG/ML VIAL IM STA (21:05)
--- NOTE | 2019-07-01 21:08 | ED.PDOC ---
General ED Provider: Dr. MYLENE OLIVEIRA-ER Chief Complaint: Headache Stated Complaint: sybil got one of my migraine osei--they are just like the usual Time Seen by Physician: 21:06 Mode of Arrival: Walk-In Information Source: Patient Exam Limitations: No limitations Nursing and Triage Documentation Reviewed and Agree: Yes Does patient meet sepsis criteria?: No System Inflammatory Response Syndrome: Not Applicable Sepsis Protocol: For patient's 13 years and over: Temp is 96.8 and below OR 101 and greater Pulse >90 BPM Resp >20/minute Acutely Altered Mental Status Are patient's symptoms suggestive of a new infection, such as: -Pneumonia -Skin, Soft Tissue -Endocarditis -UTI -Bone, Joint Infection -Implantable Device -Acute Abdominal Infection -Wound Infection -Meningitis -Blood Stream Catheter Infection -Unknown Neurological Complaint Exam - Headache Complaint/Exam Onset: Gradual Duration: 24 hrs Symptoms Are: Still present Timing: Constant Worst Headache Ever: Yes Initial Severity: Mild Current Severity: Moderate Location: Diffuse Character: Reports: Dull, Throbbing, Typical headache, Migraine Aggravating: Reports: Bright lights Alleviating: Reports: None Associated Signs and Symptoms: Reports: Nausea, Neck pain Related History: Reports: Similar episode Related Surgical History: Reports: None Normal Head CT Within Last 12 Months: Yes Fundoscopic Exam: Present: Normal Findings Papilledema Present: No Temporal Artery Tenderness: Present: None Sinus Tenderness: Present: None TMJ Tenderness: Present: None Glascow Coma Scale (see protocol): 15 Meningeal Signs Positive: No Pain on Passive Flexion-Positive Kernig's: No ROM Limited In: No Limitiations Focal Weakness: Present: None Focal Sensory Loss: Present: None Gait: Normal Nystagmus Present: No Gag Reflex Present: Yes [id number]: Normal Findings Romberg Test Positive: No Babinski Sign: Negative Right, Negative Left Heel to Toe Normal: Yes Differential Diagnoses: Migraine Review of Systems - Review Of Systems Constitutional: Reports: No symptoms Eyes: Reports: No symptoms Ears, Nose, Mouth, Throat: Reports: No symptoms Respiratory: Reports: No symptoms Cardiac: Reports: No symptoms GI: Reports: Nausea : Reports: No symptoms Musculoskeletal: Reports: No symptoms Skin: Reports: No symptoms Neurological: Reports: Headache Endocrine: Reports: No symptoms Hematologic/Lymphatic: Reports: No symptoms All Other Systems: Reviewed and Negative Past Medical History - Past Medical History Previously Healthy: No Endocrine: Reports: None Cardiovascular: Reports: None Respiratory: Reports: Asthma Hematological: Reports: Anemia Gastrointestinal: Reports: GERD, Crohn's, Other (Ulcerative colitis. ) Genitourinary: Reports: Other (hypokalemia) Neuro/Psych: Reports: Migraine Musculoskeletal: Reports: Arthritis Cancer: Reports: None Last Menstrual Period: 1992 - Surgical History General Surgical History: Reports: Hysterectomy, Cholecystectomy - Family History Family History: Reports: Unknown - Social History Smoking Status: Former smoker Hx Substance Use: No Alcohol Screening: None - Immunizations Tetanus Shot up to Date: Yes Physical Exam - Physical Exam Appearance: Well-appearing, No pain distress, Well-nourished Pain Distress: Moderate Eyes: ADONIS, EOMI, Conjunctiva clear ENT: Ears normal, Nose normal, Oropharynx normal Neck: Supple Respiratory: Airway patent, Breath sounds clear, Breath sounds equal, Respirations nonlabored Cardiovascular: RRR, Pulses normal, No rub, No murmur GI/: Soft, Nontender, No masses, Bowel sounds normal, No Organomegaly Musculoskeletal: Normal strength Skin: Warm, Dry, Normal color Neurological: Sensation intact, Motor intact, Reflexes intact, Cranial nerves intact, Alert, Oriented Psychiatric: Affect appropriate, Mood appropriate Re-Evaluation - Re-Evaluation Time of Re-Evaluation: 21:30 Status: Improved Vital Signs Stable: Yes Pain Level: 1 Appearance: NAD Lungs: Clear Skin: Warm and Dry Neuro: Alert and Oriented X3 CV: RRR Critical Care Note - Critical Care Note Total Time (mins): 0 Course - Course Orders, Labs, Meds: Orders Category Date Time Status Hydromorphone HCl [Dilaudid 1 mg/ml Syringe] MEDS 07/01/19 21:05 Discontinued 2 mg IM ONCE STA Promethazine HCl [Phenergan 25 mg/ml Vial] MEDS 07/01/19 21:05 Discontinued 25 mg IM ONCE STA Medications Discontinued Medications Generic Name Dose Route Start Last Admin Trade Name Freq PRN Reason Stop Dose Admin Hydromorphone HCl 2 mg 07/01/19 21:05 Dilaudid 1 Mg/Ml Syringe IM 07/01/19 21:06 ONCE STA Promethazine HCl 25 mg 07/01/19 21:05 Phenergan 25 Mg/Ml Vial IM 07/01/19 21:06 ONCE STA Vital Signs: Temp Pulse Resp BP Pulse Ox 07/01/19 20:54 98.7 F 98 H 20 129/83 92 L Departure - Departure Time of Disposition: 21:09 Disposition: HOME SELF-CARE Discharge Problem: Migraine Qualifiers: Migraine type: unspecified Status migrainosus presence: without status migrainosus Intractability: not intractable Qualified Code(s): G43.909 - Migraine, unspecified, not intractable, without status migrainosus Instructions: Migraine Headache (ED) Condition: Good Pt referred to PMD for follow-up: No IPMP verified?: Yes Additional Instructions: f/u with pcp Allergies/Adverse Reactions: Allergies ketorolac tromethamine [From Toradol] Adverse Reaction (Verified 07/01/19 20:59) ITCHY latex Adverse Reaction (Verified 07/01/19 20:59) REDNESS/BLISTERING ONLY IF LEFT ON SKIN FOR PERIODS OF TIME Latex, Natural Rubber Adverse Reaction (Verified 07/01/19 20:59) levofloxacin [From Levaquin] Adverse Reaction (Verified 07/01/19 20:59) HIVES/ITCHING ondansetron HCl [From Zofran] Adverse Reaction (Verified 07/01/19 20:59) MIGRAINE Penicillins Adverse Reaction (Verified 07/01/19 20:59) HIVES/ITCHING Home Medications: Ambulatory Orders Aspirin [Lo-Dose Aspirin EC] 81 mg PO DAILY 04/21/19 Clopidogrel Bisulfate [Plavix] 75 mg PO DAILY 07/01/19 Disposition Discussed With: Patient, Family
== END 2019-07-01 21:30 | disposition home or self-care (01) ==
LOC: ED 20:52
DX: G43.909 Migraine, unspecified, not intractable, without status migrainosus (principal)
CPT/HCPCS: 96372; 99282